=== PATIENT | female | born 2000 | race Caucasian/White ===

== ENCOUNTER 2022-11-07 11:04 | Outpatient (REF) | payer OTHER, SELFPAY ==
--- NOTE | ~2022-11-07 | MR_ITS ---
EXAMINATION: MR LUMBAR SPINE WITHOUT CONTRAST CLINICAL INFORMATION: Low back pain. COMPARISON: No relevant prior imaging. TECHNIQUE: MRI of the lumbar spine was obtained using routine sequences without contrast. FINDINGS: Alignment is normal. Vertebral heights are preserved. No acute bone marrow signal changes. There is slight loss of intervertebral disc height and T2 signal intensity at multiple levels related to disc degeneration. The tip of the conus medullaris is located at L1-L2. No mass effect on the conus. Visualized distal cord signal intensity is normal. At T12-L1 there is a broad right central protrusion superimposed upon a bulging disc. No canal stenosis. No mass effect on the traversing or foraminal nerve roots. At L1-L2 there is a shallow right central protrusion. No canal stenosis. No mass effect on the traversing or foraminal nerve roots. At L2-L3 there is a shallow central protrusion. No canal stenosis. No mass effect on the traversing or foraminal nerve roots. At L3-L4 there is a slightly bulging disc. No canal stenosis. No mass effect on the traversing or foraminal nerve roots. At L4-L5 there is a slightly bulging disc. No canal stenosis. No mass effect on the traversing or foraminal nerve roots. At L5-S1 there is a slightly bulging disc. No canal stenosis. No mass effect on the traversing or foraminal nerve roots. Limited visualization the retroperitoneal anatomy reveals no abnormal finding. Psoas and paraspinal muscle groups are symmetric. MR/MR lumbar spine wo con IMPRESSION: There is disc degeneration at multiple levels within the lumbar spine. No canal stenosis. No mass effect on the traversing or foraminal nerve roots.
== END 2022-11-07 11:05 | disposition home or self-care (01) ==
LOC: HO.MRI 11:04
PROVIDERS: Visit Provider Family Medicine
DX: M54.50 Low back pain, unspecified (principal)
CPT/HCPCS: 72148